=== PATIENT | male | born 1980 | race Hispanic/Latino ===

== ENCOUNTER 2020-11-13 22:21 | Emergency (ER) | payer BC, SELFPAY ==
[2020-11-14] MEDS ORDERED: HYDROCODONE/APAP 5/325 MG TAB ONE (00:19)
--- NOTE | 2020-11-14 01:12 | ER ---
Nurse's Notes [facility] Name: Enrique Bell Age: 40 yrs Sex: Male : 1980 Arrival Date: 11/13/2020 Time: 22:28 Bed 20 Private MD: Diagnosis: Maxillary fracture, unspecified;Fracture of orbital floor Presentation: 11/13 22:40 Chief complaint: Patient states: he was playing soccer today and ran into another bb player injuring left eye which is now swollen and painful denies LOC or loss of vision. Coronavirus screen: At this time, the client does not indicate any symptoms associated with coronavirus-19. Ebola Screen: No symptoms or risks identified at this time. Mechanism of Injury: ran into another cash specialist. The patient denies any loss of vision. Initial Sepsis Screen: Does the patient meet any 2 criteria? No. Patient's initial sepsis screen is negative. Does the patient have a suspected source of infection? No. Patient's initial sepsis screen is negative. Risk Assessment: Do you want to hurt yourself or someone else? Patient reports no desire to harm self or others. Onset of symptoms was November 13, 2020. 22:40 Method Of Arrival: Ambulatory bb 22:40 Acuity: CHRIS 3 bb Triage Assessment: 23:39 General: Appears in no apparent distress. Behavior is calm, cooperative. Pain: Denies ak2 pain. EENT: Eyes are tearing on outer aspect of conjuctiva of left eye, iris of left eye, inner aspect of conjunctiva of left eye and left lower eyelid. Historical: - Allergies: 22:43 No Known Allergies; bb - Home Meds: 22:43 Metformin Oral [Active]; bb - PMHx: 22:43 Diabetes - NIDDM; bb - PSHx: 22:43 None; bb - Immunization history:: Adult Immunizations unknown. - Social history:: Smoking status: Patient denies any tobacco usage or history of. Screenin:39 Abuse screen: Denies threats or abuse. Denies injuries from another. Nutritional ak2 screening: No deficits noted. Tuberculosis screening: No symptoms or risk factors identified. Fall Risk None identified. Assessment: 23:40 EENT: Sclera/Cornea are reddened in outer aspect of conjuctiva of left eye, iris of ak2 left eye and inner aspect of conjunctiva of left eye. Vital Signs: 22:40 BP 123 / 76; Pulse 83; Resp 16 S; Temp 98.2(O); Pulse Ox 97% on R/A; Weight 99.79 kg bb (R); Height 5 ft. 7 in. (170.18 cm) (R); Pain 8/10; 11/14 00:58 BP 114 / 69; Pulse 78; Resp 18; Pulse Ox 100% on R/A; ak2 11/13 22:40 Body Mass Index 34.46 (99.79 kg, 170.18 cm) bb Visual Acuity: 11/13 22:43 Left Eye Visual acuity 20/40, Pupil size 4 mm, ; Right Eye Visual acuity 20/70, Pupil bb size 4 mm, ; Both Eyes Visual acuity 20/40; Without Lenses; [place] Coma Score: 11/14 01:07 Eye Response: spontaneous(4). Verbal Response: oriented(5). Motor Response: obeys tw4 commands(6). Total: 15. ED Course: 11/13 22:28 Patient arrived in ED. es 22:39 Oleksandr Hannah MD is Attending Physician. tw4 22:42 Triage completed. bb 22:43 Arm band placed on Patient placed in an exam room, on a stretcher, on pulse oximetry. bb 23:38 Nilton Mcnulty is Primary Nurse. ak2 23:39 Patient has correct armband on for positive identification. ak2 23:39 No provider procedures requiring assistance completed. ak2 23:45 CT Facial Bones W/O Con In Process Unspecified. EDWV 11/14 01:10 Myah Sumner MD is Referral Physician. tw4 Administered Medications: 00:01 Drug: [place] (HYDROcodone-acetaminophen) 5 mg-325 mg 1 tabs Route: PO; ak2 Outcome: 01:12 Discharge ordered by . tw4 01:28 Discharged to home ambulatory. ak2 01:28 Condition: good 01:28 Discharge instructions given to Prescriptions given X 2. 01:29 Patient left the ED. ak2 Signatures: Dispatcher [employer] EDWV Elodia Barakat Brenda, RN RN Oleksandr Foley MD MD tw4 Nilton Mcnulty ak2
--- NOTE | 2020-11-14 01:13 | EDPHYS ---
Physician Documentation [facility] Name: Enrique Bell Age: 40 yrs Sex: Male : 1980 Arrival Date: 11/13/2020 Time: 22:28 Bed 20 Private MD: ED Physician Oleksandr Hannah HPI: 11/14 00:58 This 40 yrs old Male presents to ER via Ambulatory with complaints of Eye tw4 Injury. 01:01 The patient or guardian reports injury, pain. The complaints affect the left eye. tw4 Context of injury: The problem was sustained at home. Onset: The symptoms/episode began/occurred just prior to arrival, today. Associated signs and symptoms: Loss of consciousness: This patient did not experience any loss of consciousness. Pertinent positives: dazed, injury, Pertinent negatives: the patient has not experienced a loss of conciousness, patient denies any alcohol consumption, tinnitus, vomiting. Severity of symptoms: At their worst the symptoms were moderate, in the emergency department the symptoms are unchanged. The patient has not experienced similar symptoms in the past. Historical: - Allergies: 11/13 22:43 No Known Allergies; bb - Home Meds: 22:43 Metformin Oral [Active]; bb - PMHx: 22:43 Diabetes - NIDDM; bb - PSHx: 22:43 None; bb - Immunization history:: Adult Immunizations unknown. - Social history:: Smoking status: Patient denies any tobacco usage or history of. ROS: 11/14 01:01 Constitutional: Negative for fever, chills, and weight loss, ENT: Negative for injury, tw4 pain, and discharge, Neck: Negative for injury, pain, and swelling, Cardiovascular: Negative for chest pain, palpitations, and edema, Respiratory: Negative for shortness of breath, cough, wheezing, and pleuritic chest pain, Abdomen/GI: Negative for abdominal pain, nausea, vomiting, diarrhea, and constipation, Back: Negative for injury and pain, Skin: Negative for injury, rash, and discoloration, Neuro: Negative for headache, weakness, numbness, tingling, and seizure. Eyes: Positive for injury or acute deformity, swelling. Exam: 01:01 Constitutional: This is a well developed, well nourished patient who is awake, alert, tw4 and in no acute distress. Head/Face: Normocephalic, atraumatic. 01:01 Neck: Trachea midline, no thyromegaly or masses palpated, and no cervical lymphadenopathy. Supple, full range of motion without nuchal rigidity, or vertebral point tenderness. No Meningismus. Chest/axilla: Normal chest wall appearance and motion. Nontender with no deformity. No lesions are appreciated. Cardiovascular: Regular rate and rhythm with a normal S1 and S2. No gallops, murmurs, or rubs. Normal PMI, no JVD. No pulse deficits. Respiratory: Lungs have equal breath sounds bilaterally, clear to auscultation and percussion. No rales, rhonchi or wheezes noted. No increased work of breathing, no retractions or nasal flaring. Abdomen/GI: Soft, non-tender, with normal bowel sounds. No distension or tympany. No guarding or rebound. No evidence of tenderness throughout. Back: No spinal tenderness. No costovertebral tenderness. Full range of motion. 01:01 Eyes: Periorbital structures: swelling, on the left lower eyelid. Vital Signs: 11/13 22:40 BP 123 / 76; Pulse 83; Resp 16 S; Temp 98.2(O); Pulse Ox 97% on R/A; Weight 99.79 kg bb (R); Height 5 ft. 7 in. (170.18 cm) (R); Pain 8/10; 06/07 00:58 BP 114 / 69; Pulse 78; Resp 18; Pulse Ox 100% on R/A; ak2 11/13 22:40 Body Mass Index 34.46 (99.79 kg, 170.18 cm) bb [place] Coma Score: 01:07 Eye Response: spontaneous(4). Verbal Response: oriented(5). Motor Response: obeys tw4 commands(6). Total: 15. Visual Acuity: 11/13 22:43 Left Eye Visual acuity 20/40, Pupil size 4 mm, ; Right Eye Visual acuity 20/70, Pupil bb size 4 mm, ; Both Eyes Visual acuity 20/40; Without Lenses; MDM: 22:39 Patient medically screened. tw4 11/14 01:07 Differential diagnosis: Contusion of Hematoma on head. Data reviewed: vital signs, tw4 nurses notes, radiologic studies, CT scan. Data interpreted: Pulse oximetry: Interpretation: normal. Counseling: I had a detailed discussion with the patient and/or guardian regarding: the historical points, exam findings, and any diagnostic results supporting the discharge/admit diagnosis, radiology results. Special discussion: Based on the patient's history, exam and DX evaluation, there is no indication for emergent intervention or inpatient TX. It is understood by the patient/guardian that if the SXs persist or worsen they need to return immediately for re-evaluation. I discussed with the patient/guardian in detail that at this point there is no indication for admission to the hospital. It is understood, however, that if the symptoms persist or worsen the patient needs to return immediately for re-evaluation. 11/13 22:42 Order name: CT Facial Bones W/O Con tw4 Administered Medications: 00:01 Drug: [place] (HYDROcodone-acetaminophen) 5 mg-325 mg 1 tabs Route: PO; ak2 Disposition: 11/14/20 01:12 Discharged to Home. Impression: Maxillary fracture, unspecified, Fracture of orbital floor. - Condition is Stable. - Discharge Instructions: Facial or Scalp Contusion, Orbital Floor Fracture Without Entrapment. - Prescriptions for Ibuprofen 800 mg Oral Tablet - take 1 tablet by ORAL route every 8 hours As needed take with food; 30 tablet. Tramadol 50 mg Oral Tablet - take 1 tablet by ORAL route every 8 hours as needed; 12 tablet. - Medication Reconciliation Form, Thank You Letter, Antibiotic Education, Prescription Opioid Use form. - Follow up: Private Physician; When: Upon discharge from the Emergency Department; Reason: Recheck today's complaints, Continuance of care, Re-evaluation by your physician. Follow up: Myah Sumner MD; When: Upon discharge from the Emergency Department; Reason: Recheck today's complaints, Continuance of care, Re-evaluation by your physician. - Problem is new. - Symptoms have improved. Signatures: Dispatcher [employer] EDMS Vanessa Cervantes RN RN Oleksandr Foley MD MD tw4 Nilton Mcnulty ak2 Corrections: (The following items were deleted from the chart) 01:29 01:12 11/14/2020 01:12 Discharged to Home. Impression: Maxillary fracture, unspecified; ak2 Fracture of orbital floor. Condition is Stable. Forms are Medication Reconciliation Form, Thank You Letter, Antibiotic Education, Prescription Opioid Use. Follow up: Private Physician; When: Upon discharge from the Emergency Department; Reason: Recheck today's complaints, Continuance of care, Re-evaluation by your physician. Follow up: Myah Sumner; When: Upon discharge from the Emergency Department; Reason: Recheck today's complaints, Continuance of care, Re-evaluation by your physician. Problem is new. Symptoms have improved. tw4
[2020-11-14 01:52] VITALS: TEMP 98.2
[2020-11-14 01:53] VITALS: BP 114/69; O2SAT 100
--- NOTE | 2020-11-14 11:34 | RAD REPORT ---
EXAM DESCRIPTION: CT - Facial Bones W/ Mpr - 11/14/2020 9:20 am CLINICAL HISTORY: The patient is 40 years old and is Male; Facial pain;Trauma TECHNIQUE: Axial computed tomography images of the face without intravenous contrast. Sagittal and coronal reformatted images were created and reviewed. This CT exam was performed using one or more of the following dose reduction techniques: automated exposure control, adjustment of the mA and/o r kV according to patient size, and/or use of iterative reconstruction technique. COMPARISON: No relevant prior studies available. FINDINGS: Bones/joints: There is a fracture of the inferior wall of the left orbit/anterior wall o f the maxillary sinus which involves the infraorbital foramen. There are fractures of the lateral wall of the left maxillary sinus. Soft tissues: Unremarkable. Orbits: Left malar/periorbital soft tissue swelling and subcutaneous emphysema. There is air tra cking into the left orbit along the left lateral rectus muscle. The globe appears intact. Sinuses: Partial opacification of the left maxillary sinus. No air-fluid levels. Dental: Periapical lucency with cortical dehiscence involving the lower left lateral incisor. Scattered periapical lucencies in the right upper first premolar. IMPRESSION: 1. Left malar/periorbital soft tissue swelling and subcutaneous emphysema. There is ai r tracking into the left orbit along the left lateral rectus muscle. The globe appears intact. 2. There is a fracture of the inferior wall of the left orbit/anterior wall of the left maxillary s inus which involves the infraorbital foramen. 3. There are fractures of the lateral wall of the left maxillary sinus. Electronically signed by: Corona Graham MD 11/14/2020 12:10 AM CDT Due to temporary technical issues with the PACS/Fluency reporting system, reports are being signed by the in house radiologist without review as a courtesy to ensure prompt reporting. The interpreting r adiologist is fully responsible for the content of the report.
== END 2020-11-14 01:29 | disposition home or self-care (01) ==
LOC: ER 22:21
DX: S02.40DA Maxillary fracture, left side, initial encounter for closed fracture (principal); S02.32XA Fracture of orbital floor, left side, initial encounter for closed fracture; X58.XXXA Exposure to other specified factors, initial encounter; Y92.009 Unspecified place in unspecified non-institutional (private) residence as the place of occurrence of the external cause; E11.9 Type 2 diabetes mellitus without complications; Z79.84 Long term (current) use of oral hypoglycemic drugs
CPT/HCPCS: 70486; 76377; 99284